=== PATIENT | female | born 1950 | race Caucasian/White ===

== ENCOUNTER 2017-07-29 09:58 | Outpatient (CLI) | payer OTHER ==
[~2017-07-29 09:58] MED LIST: AVALIDE 300-121 EACH; CIPRO500 MG PO; LEVSIN0.125 MG PO; NORVASC2.5 M1; PROTONIX40 MG PO; ZANTAC300 MG PO; ZOFRAN4 MG PO
== END 2017-07-29 10:22 | disposition home or self-care (01) ==
LOC: MRI 09:58
DX: M70.51 Other bursitis of knee, right knee (principal)
CPT/HCPCS: 73721

== ENCOUNTER 2017-07-29 10:01 | Outpatient (CLI) | payer OTHER | END 2017-07-29 10:24 | disposition home or self-care (01) | LOC: RAD 10:01 | DX: M70.51 Other bursitis of knee, right knee (principal) ==

== ENCOUNTER 2017-10-18 07:19 | Outpatient (CLI) | payer OTHER | END 2017-10-18 07:47 | disposition home or self-care (01) | LOC: LAB 07:19 | DX: D50.8 Other iron deficiency anemias (principal); R53.1 Weakness; E78.2 Mixed hyperlipidemia; E11.40 Type 2 diabetes mellitus with diabetic neuropathy, unspecified; N30.90 Cystitis, unspecified without hematuria; M81.0 Age-related osteoporosis without current pathological fracture; Z12.11 Encounter for screening for malignant neoplasm of colon; E04.2 Nontoxic multinodular goiter ==

== ENCOUNTER 2018-01-27 07:48 | Outpatient (CLI) | payer OTHER | END 2018-01-27 08:11 | disposition home or self-care (01) | LOC: LAB 07:48 | DX: E78.2 Mixed hyperlipidemia (principal); N30.00 Acute cystitis without hematuria; E78.4 Other hyperlipidemia; D51.3 Other dietary vitamin B12 deficiency anemia; N95.1 Menopausal and female climacteric states; Z12.11 Encounter for screening for malignant neoplasm of colon; N83.299 Other ovarian cyst, unspecified side ==

== ENCOUNTER 2018-05-22 08:16 | Outpatient (CLI) | payer OTHER | END 2018-05-22 08:26 | disposition home or self-care (01) | LOC: LAB 08:16 | DX: E78.2 Mixed hyperlipidemia (principal) ==

== ENCOUNTER 2018-07-16 08:24 | Outpatient (CLI) | payer OTHER | END 2018-07-16 08:47 | disposition home or self-care (01) | LOC: LAB 08:24 | DX: E78.00 Pure hypercholesterolemia, unspecified (principal) ==

== ENCOUNTER → 2022-10-18 | Emergency (ER) | payer OTHER ==
[~2022-10-18] VITALS: Ht 154.9 cm; Wt 54.9 kg
== END | disposition home or self-care (01) ==
LOC: ER 10:13
DX: S80.11XA Contusion of right lower leg, initial encounter (principal); S50.01XA Contusion of right elbow, initial encounter; W18.39XA Other fall on same level, initial encounter; Y93.89 Activity, other specified; Y92.512 Supermarket, store or market as the place of occurrence of the external cause; Y99.8 Other external cause status; I10 Essential (primary) hypertension

== ENCOUNTER → 2022-12-09 | Emergency (ER) | payer OTHER ==
[~2022-12-09] VITALS: Ht 154.9 cm; Wt 54.4 kg
[~2022-12-09] MED LIST changes: +ATORVASTATIN CA20 MG PO; +AVAPRO75 MG; +CARVEDILOL12.5 M1 PO
== END | disposition left against medical advice (07) ==
LOC: ER 11:15
DX: S09.8XXA Other specified injuries of head, initial encounter (principal); W18.39XA Other fall on same level, initial encounter; Y93.89 Activity, other specified; Y92.013 Bedroom of single-family (private) house as the place of occurrence of the external cause; R55 Syncope and collapse; U07.1 COVID-19

== ENCOUNTER 2024-04-05 13:34 | Emergency (ER) | payer OTHER ==
[~2024-04-05] VITALS: Ht 154.9 cm; Wt 54.4 kg
[2024-04-05] MEDS ORDERED: LEVALBUTEROL HCL 1.25 MG/3 ML SOLUTION IH ONE (17:15)
[2024-04-05] MEDS ORDERED: IPRATROPIUM BROMIDE 0.5 MG/2.5 ML AMPUL.NEB IH ONE (17:15)
[2024-04-05] MEDS ORDERED: GUAIFENESIN/DEXTROMETHORPHAN 10ML BLIST.PACK PO ONE (17:15)
[2024-04-05] MEDS ORDERED: CETIRIZINE HCL 5 MG/5 ML ML PO ONE (17:30)
[2024-04-05 18:07] LABS: HEMATOCRIT 41.3 % (36.0-45.00); HEMOGLOBIN 14.4 g/dL (12.0-15.00); MEAN CORPUSCULAR HEMOGLOBIN 31.1 pg (27.00-32.0); MEAN CORPUSCULAR HGB CONC 34.9 g/dl (32.0-36.0); PLATELET COUNT 222 K/uL (150-450); RED BLOOD COUNT 4.64 M/uL (4.00-6.00); RED CELL DISTRIBUTION WIDTH 14.1 % (11.5-14.5)
[2024-04-05] MEDS ORDERED: IPRATROPIU0.2 MG/1 M IH (19:16)
[2024-04-05] MEDS ORDERED: XOPENEX CO1.25 MG/0. IH (19:16)
[2024-04-05] MEDS ORDERED: TUSSIN DM LIQU118 ML PO (19:16)
[2024-04-05] MEDS ORDERED: ZITHROMAX TRI-500 MG PO (19:17)
== END 2024-04-05 20:30 | disposition home or self-care (01) ==
LOC: ER 13:35
PROVIDERS: Nurse Practitioner Family
DX: J06.9 Acute upper respiratory infection, unspecified (principal); J00 Acute nasopharyngitis [common cold]; Z20.822 Contact with and (suspected) exposure to COVID-19; I10 Essential (primary) hypertension

== ENCOUNTER 2024-05-07 08:22 | Outpatient (CLI) | payer OTHER ==
[~2024-05-07 08:22] MED LIST changes: +IPRATROPIU0.2 MG/1 M IH; +TUSSIN DM LIQU118 ML PO; +XOPENEX CO1.25 MG/0. IH; +ZITHROMAX TRI-500 MG PO
== END 2024-05-07 08:30 | disposition home or self-care (01) ==
LOC: SONOGRAMA 08:22
PROVIDERS: ATTEND Specialist
DX: K76.0 Fatty (change of) liver, not elsewhere classified (principal)

== ENCOUNTER 2024-12-14 12:10 | Inpatient (IN) | payer OTHER ==
[~2024-12-14] VITALS: Ht 152.4 cm; Wt 53.5 kg
[2024-12-14 15:04] LABS: BASO % 1.0 % (0.1-1.2); EOS # 0.55 (0.04-0.54); EOS % 5.9 % (0.7-7.0); LYMPH # 1.81 (1.18-3.74); LYMPH % 19.5 % (19.3-53.1); MEAN PLATELET VOLUME 9.40 fl (9.4-12.4); MONO # 1.02 (0.24-0.82); MONO % 11.0 % (4.7-12.5); NEUT # 5.76 (1.56-6.13); NEUT % 62.2 % (34.0-71.1); RED CELL DISTRIBUTION WIDTH 13.3 % (11.6-14.4)
[2024-12-14 17:07] LABS: ABG PH 7.462 (7.35-7.45); ABG PO2 69.5 mmHg (80-100); BICARBONATE 19.3 mmol/l (23-25); o2 21 %
[2024-12-14] MEDS ORDERED: IPRATROPIUM BROMIDE 0.5 MG/2.5 ML AMPUL.NEB IH SCH (19:56)
[2024-12-14] MEDS ORDERED: ACETAMINOPHEN 500 MG GEL..CAP PO PRN (20:00)
[2024-12-14] MEDS ORDERED: CEFTRIAXONE SODIUM 2,000 MG in 0.9 % SODIUM CHLORIDE 100 ML IV SCH (20:05)
[2024-12-14] MEDS ORDERED: AZITHROMYCIN 500 MG in DEXTROSE 5 % IN WATER 250 ML IV SCH (20:05)
[2024-12-14 20:11] LABS: ALT/SGPT 60.0 U/L (12-78); AST/SGOT 31.0 U/L (15-37); BILIRUBIN TOTAL 0.54 mg/dL (0.3-1.2); BUN CREA RATIO 25.0 (7.0-25.0); CREATININE SERUM 0.71 mg/dL (0.55-1.02); GFR 80.47; GLOBULINA 4.4 G/DL (2.4-3.5); GLUCOSE FASTING 144.0 mg/dL (65-100); OSMOLALITY SERUM 282.0 MOSM/KG (275-295)
[2024-12-14 20:57] LABS: COVID-19 AG NEGATIVE (NEGATIVE)
[2024-12-14] MEDS ORDERED: AZITHROMYCIN 500 MG VIAL IV ONE (21:56)
[2024-12-14] MEDS ORDERED: CEFTRIAXONE SODIUM 2,000 MG VIAL ONE (21:56)
[2024-12-14] MEDS ORDERED: OSELTAMIVIR PHOSPHATE 75 MG CAPSULE PO SCH (22:02)
[2024-12-14] MEDS ORDERED: OSELTAMIVIR PHOSPHATE 75 MG CAPSULE PO ONE (22:22)
[2024-12-14 22:26] VITALS: BP 157/75
[2024-12-14 22:31] LABS: URINE APPEARANCE Clear; URINE BILIRRUBIN Negative (NEGATIVE); URINE BLOOD Negative; URINE COLOR Yellow; URINE GLUCOSE Negative (NEGATIVE); URINE KETONE Negative (NEGATIVE); URINE LEUKOCYTE Negative; URINE NITRATE Negative; URINE PROTEIN Negative (NEGATIVE); URINE UROBILINOGEN 0.2 E.U./dl
[2024-12-14 22:35] LABS: URINE BACTERIA 37.9 uL (0.0-1933); URINE EPITHELIAL CELLS 2.3 uL (0.0-38.8); URINE RBC 19.5 uL (0.0-20.8); URINE WBC 10.1 uL (0.0-23.2)
[2024-12-14 22:37] LABS: URINE CAST 0.58 uL (0.0-1.40)
[2024-12-14 23:14] LABS: URINE YEAST FEW /hpf
[2024-12-14 23:15] VITALS: BP 112/72; O2SAT 96
[2024-12-15] VITALS (7 sets, daily range): BP systolic 124–153; BP diastolic 77–86; O2SAT 90–97
[2024-12-15] MEDS ORDERED: IPRATROPIUM BROMIDE 0.5 MG/2.5 ML AMPUL.NEB IH ONE (00:20)
[2024-12-15 07:53] LABS: INR 1.05
[2024-12-15] MEDS ORDERED: FAMOTIDINE/PF 20 MG in 0.9 % SODIUM CHLORIDE 8 ML IV PUSH SCH (09:00)
[2024-12-15] MEDS ORDERED: IRBESARTAN 150 MG TABLET PO SCH (09:00)
[2024-12-15] MEDS ORDERED: ATORVASTATIN CALCIUM 20 MG TABLET PO SCH (09:00)
[2024-12-15] MEDS ORDERED: ENOXAPARIN SODIUM 40 MG/0.4 ML SYRINGE SUBCUTANEO SCH (09:00)
[2024-12-15] MEDS ORDERED: AZITHROMYCIN 500 MG VIAL IV ONE (16:29)
[2024-12-15] MEDS ORDERED: AZITHROMYCIN 500 MG VIAL IV SCH (17:00)
[2024-12-15] MEDS ORDERED: ENALAPRILAT DIHYDRATE 1.25 MG/ML VIAL IV PRN (17:15)
[2024-12-15 21:32] LABS: MONONUCLEAR 84.0 %; POLYMORPHONUCLEAR 16.0 %
[2024-12-15 21:51] LABS: GLU PLEURAL FLUID 115.0 mg/dl; LDH PLEURAL FLUID 226.0 U/L; TP PLEURAL FLUID 5.4 g/dl
[2024-12-16] VITALS (9 sets, daily range): BP systolic 124–147; BP diastolic 74–79; O2SAT 98–100
[2024-12-16 06:57] LABS: BASO % 0.9 % (0.1-1.2); EOS # 0.47 (0.04-0.54); EOS % 4.7 % (0.7-7.0); LYMPH # 1.84 (1.18-3.74); LYMPH % 18.5 % (19.3-53.1); MEAN PLATELET VOLUME 10.00 fl (9.4-12.4); MONO # 1.11 (0.24-0.82); MONO % 11.2 % (4.7-12.5); NEUT # 6.37 (1.56-6.13); NEUT % 64.2 % (34.0-71.1); RED CELL DISTRIBUTION WIDTH 13.2 % (11.6-14.4)
[2024-12-16 07:36] LABS: ALT/SGPT 42.0 U/L (12-78); AST/SGOT 19.0 U/L (15-37); BILIRUBIN TOTAL 0.69 mg/dL (0.3-1.2); BUN CREA RATIO 32.0 (7.0-25.0); CREATININE SERUM 0.59 mg/dL (0.55-1.02); GFR 99.64; GLOBULINA 3.5 G/DL (2.4-3.5); GLUCOSE FASTING 98.0 mg/dL (65-100); LDH 140.0 U/L (84-246); OSMOLALITY SERUM 276.0 MOSM/KG (275-295)
[2024-12-16 08:46] LABS: MYCOPLASMA PNEUMONIAE IGM NON REACTIVE (NO REACTIVE)
[2024-12-16] MEDS ORDERED: AMLODIPINE BESYLATE 5 MG TABLET PO SCH (09:00)
[2024-12-16] MEDS ORDERED: AZITHROMYCIN 500 MG VIAL IV ONE (16:21)
[2024-12-16] MEDS ORDERED: fentaNYL CITRATE 50 MCG/ML AMPUL IV PUSH ONE (19:15)
[2024-12-16] MEDS ORDERED: MIDAZOLAM HCL 2 MG/2 ML VIAL IV PUSH ONE (19:15)
[2024-12-17] VITALS (9 sets, daily range): BP systolic 118–133; BP diastolic 71–79; O2SAT 97–100
[2024-12-17] MEDS ORDERED: MORPHINE SULFATE 2 MG/ML CARTRIDGE IV PRN (14:15)
[2024-12-17] MEDS ORDERED: TRAMADOL HCL 50 MG TABLET PO PRN (14:45)
[2024-12-18] VITALS (9 sets, daily range): BP systolic 118–142; BP diastolic 74–84; O2SAT 90–100
[2024-12-19] VITALS (9 sets, daily range): BP systolic 120–121; BP diastolic 71–78; O2SAT 95–99
[2024-12-19 08:10] LABS: BASO % 1.0 % (0.1-1.2); EOS # 0.59 (0.04-0.54); EOS % 7.2 % (0.7-7.0); LYMPH # 1.62 (1.18-3.74); LYMPH % 19.8 % (19.3-53.1); MEAN PLATELET VOLUME 9.60 fl (9.4-12.4); MONO # 0.99 (0.24-0.82); NEUT # 4.85 (1.56-6.13); NEUT % 59.3 % (34.0-71.1); RED CELL DISTRIBUTION WIDTH 12.7 % (11.6-14.4)
[2024-12-19 08:16] LABS: MONO % 12.1 % (4.7-12.5)
[2024-12-19 08:51] LABS: ALT/SGPT 143.0 U/L (12-78); AST/SGOT 133.0 U/L (15-37); BILIRUBIN TOTAL 0.5 mg/dL (0.3-1.2); BUN CREA RATIO 30.0 (7.0-25.0); CREATININE SERUM 0.74 mg/dL (0.55-1.02); GFR 76.72; GLOBULINA 3.9 G/DL (2.4-3.5); GLUCOSE FASTING 89.0 mg/dL (65-100); LDH 194.0 U/L (84-246); OSMOLALITY SERUM 271.0 MOSM/KG (275-295)
[2024-12-20] VITALS (9 sets, daily range): BP systolic 118–159; BP diastolic 75–78; O2SAT 95–98
[2024-12-21] VITALS (10 sets, daily range): BP systolic 114–131; BP diastolic 68–81; O2SAT 91–99
[2024-12-21] MEDS ORDERED: TRAMADOL HCL 50 MG TABLET PO PRN (11:00)
[2024-12-22 00:50] VITALS: BP 118/74; O2SAT 97
[2024-12-22 05:55] VITALS: O2SAT 96
[2024-12-22 08:44] VITALS: O2SAT 96
[2024-12-22] MEDS ORDERED: BENZONATATE 200 MG CAPSULE PO SCH (09:00)
[2024-12-22 10:17] VITALS: BP 115/72; O2SAT 94
== END 2024-12-22 13:24 | disposition home or self-care (01) | DRG 194 ==
LOC: ER 12:10 → MEDI 20:57 → SURH 20:57 → SEC-K 21:31 → SURH 12-15 00:47 → MEDJ 12-15 20:55
PROVIDERS: General Practice; Internal Medicine Infectious Disease; Radiology Vascular & Interventional Radiology; ADMIT Specialist; ATTEND Specialist
PROC: 8E0ZXY6 Isolation (ICD-10-PCS; principal; 2024-12-14)
PROC: BB24ZZZ Computerized Tomography (CT Scan) of Bilateral Lungs (ICD-10-PCS; 2024-12-14)
PROC: 3E0F7GC Introduction of Other Therapeutic Substance into Respiratory Tract, Via Natural or Artificial Opening (ICD-10-PCS; 2024-12-15)
PROC: 0W9B30Z Drainage of Left Pleural Cavity with Drainage Device, Percutaneous Approach (ICD-10-PCS; 2024-12-15)
PROC: 0BBJ3ZX Excision of Left Lower Lung Lobe, Percutaneous Approach, Diagnostic (ICD-10-PCS; 2024-12-16)
DX: J10.08 Influenza due to other identified influenza virus with other specified pneumonia (principal); C34.32 Malignant neoplasm of lower lobe, left bronchus or lung; J91.8 Pleural effusion in other conditions classified elsewhere; F41.1 Generalized anxiety disorder; I10 Essential (primary) hypertension; E78.5 Hyperlipidemia, unspecified

== ENCOUNTER 2025-01-07 13:58 | Outpatient (CLI) | payer OTHER | END 2025-01-07 14:06 | disposition home or self-care (01) | LOC: RAD 13:58 | PROVIDERS: ATTEND Internal Medicine Hematology & Oncology | DX: R06.02 Shortness of breath (principal); J91.8 Pleural effusion in other conditions classified elsewhere ==

== ENCOUNTER 2025-01-09 15:38 | Inpatient (IN) | payer OTHER ==
[~2025-01-09] VITALS: Ht 152.4 cm; Wt 53.5 kg
--- NOTE | 2025-01-09 17:25 | NUR ---
SE RECIBE PTE ALERTA ORIENTADA X3 Y AMBULANDO. PTE REFIERE FATIGA Y DOLOR EN ESPALDA BAJA HACE DOS DIEGO. SE REALIZA EKG Y SE MUESTRA A DR. RICH. SE MIDEN S/V Y SE UBICA.
--- NOTE | 2025-01-09 18:27 | NUR ---
PTE ALERTA Y ORIENTADA X3 ES EVALUADA POR LA DRA. RICH. SE ORIENTA SOBRE TRATAMIENTO, VERBALIZA ENTENDER. SE COLECTAN MUESTRAS DE LAB LEOPOLDO ORDEN MEDICA BAJO MEDIDAS ASEPTICAS. SE NOTIFICA CT.
[2025-01-09 18:28] LABS: BASO % 0.9 % (0.1-1.2); EOS # 1.08 (0.04-0.54); EOS % 8.0 % (0.7-7.0); LYMPH # 1.44 (1.18-3.74); LYMPH % 10.7 % (19.3-53.1); MEAN PLATELET VOLUME 9.00 fl (9.4-12.4); MONO # 1.11 (0.24-0.82); MONO % 8.2 % (4.7-12.5); NEUT # 9.62 (1.56-6.13); NEUT % 71.5 % (34.0-71.1); RED CELL DISTRIBUTION WIDTH 13.4 % (11.6-14.4)
[2025-01-09 18:53] LABS: ALT/SGPT 72.0 U/L (12-78); AST/SGOT 56.0 U/L (15-37); BILIRUBIN TOTAL 0.48 mg/dL (0.3-1.2); BUN CREA RATIO 21.0 (7.0-25.0); CREATININE SERUM 0.82 mg/dL (0.55-1.02); GFR 68.15; GLOBULINA 4.9 G/DL (2.4-3.5); GLUCOSE FASTING 150.0 mg/dL (65-100); OSMOLALITY SERUM 271.0 MOSM/KG (275-295)
[2025-01-09 18:59] LABS: COVID-19 AG NEGATIVE (NEGATIVE)
[2025-01-09 19:00] LABS: INR 1.05
[2025-01-09 19:20] LABS: ABG PH 7.428 (7.35-7.45); ABG PO2 81.4 mmHg (80-100); BICARBONATE 20.1 mmol/l (23-25); o2 21 %
[2025-01-09] MEDS ORDERED: IPRATROPIUM BROMIDE 0.5 MG/2.5 ML AMPUL.NEB IH SCH ×2 (21:40→21:44)
[2025-01-09] MEDS ORDERED: BENZONATATE 100 MG CAPSULE PO SCH (21:43)
[2025-01-09] MEDS ORDERED: 0.9 % SODIUM CHLORIDE 1,000 ML IV SCH (21:45)
[2025-01-09] MEDS ORDERED: ACETAMINOPHEN 500 MG GEL..CAP PO PRN (21:45)
[2025-01-10 01:23] VITALS: BP 171/90; O2SAT 100
[2025-01-10 01:50] LABS: URINE APPEARANCE Clear; URINE BILIRRUBIN Negative (NEGATIVE); URINE BLOOD Negative; URINE COLOR Yellow; URINE GLUCOSE Negative (NEGATIVE); URINE KETONE Trace (NEGATIVE); URINE LEUKOCYTE Small; URINE NITRATE Negative; URINE PROTEIN 30 (NEGATIVE); URINE UROBILINOGEN 1.0 E.U./dl
[2025-01-10 01:54] LABS: URINE BACTERIA 421.2 uL (0.0-1933); URINE EPITHELIAL CELLS 15.6 uL (0.0-38.8); URINE RBC 20.2 uL (0.0-20.8); URINE WBC 26.1 uL (0.0-23.2)
[2025-01-10 02:17] LABS: URINE CAST 0.58 uL (0.0-1.40)
[2025-01-10 08:00] VITALS: BP 155/80; O2SAT 97
[2025-01-10] MEDS ORDERED: IRBESARTAN 300 MG TABLET PO SCH (09:00)
[2025-01-10] MEDS ORDERED: ENOXAPARIN SODIUM 40 MG/0.4 ML SYRINGE SUBCUTANEO SCH (09:00)
[2025-01-10] MEDS ORDERED: ATORVASTATIN CALCIUM 20 MG TABLET PO SCH (09:00)
[2025-01-10] MEDS ORDERED: BENZONATATE 200 MG CAPSULE PO SCH (09:00)
[2025-01-10] MEDS ORDERED: CARVEDILOL 6.25 MG TABLET PO SCH (09:00)
[2025-01-10 17:00] VITALS: BP 150/82; O2SAT 97
[2025-01-10 21:47] LABS: MONONUCLEAR 90.0 %; POLYMORPHONUCLEAR 10.0 %
[2025-01-10 22:01] LABS: GLU PLEURAL FLUID 111.0 mg/dl; LDH PLEURAL FLUID 68.0 U/L; TP PLEURAL FLUID 5.3 g/dl
[2025-01-11 00:47] VITALS: BP 130/85; O2SAT 95
[2025-01-11 08:00] VITALS: BP 154/86; O2SAT 97
[2025-01-11] MEDS ORDERED: CEFTRIAXONE SODIUM 1,000 MG VIAL IV STA (11:36)
[2025-01-11] MEDS ORDERED: TRAMADOL HCL 50 MG TABLET PO PRN (13:15)
[2025-01-11 15:30] VITALS: BP 145/75; O2SAT 96
[2025-01-12 08:00] VITALS: BP 152/81; O2SAT 97
[2025-01-12] MEDS ORDERED: CEFTRIAXONE SODIUM 1,000 MG VIAL IV SCH (09:00)
[2025-01-12] MEDS ORDERED: FAMOTIDINE/PF 20 MG/2 ML VIAL IV NR (12:05)
[2025-01-12 16:33] VITALS: BP 134/78; O2SAT 97
== END 2025-01-12 17:53 | DRG 181 ==
LOC: ER 15:45 → SURG 21:45
PROVIDERS: General Practice; Radiology Vascular & Interventional Radiology; ADMIT Specialist; ATTEND Specialist
PROC: BB24ZZZ Computerized Tomography (CT Scan) of Bilateral Lungs (ICD-10-PCS; 2025-01-09)
PROC: 0W9B3ZZ Drainage of Left Pleural Cavity, Percutaneous Approach (ICD-10-PCS; principal; 2025-01-10)
DX: C34.92 Malignant neoplasm of unspecified part of left bronchus or lung (principal); J90 Pleural effusion, not elsewhere classified; E78.5 Hyperlipidemia, unspecified; I10 Essential (primary) hypertension

== ENCOUNTER 2025-01-19 13:59 | Outpatient (CLI) | payer OTHER ==
[2025-01-19 15:20] LABS: CREATININE SERUM 0.68 mg/dL (0.55-1.02)
== END 2025-01-19 15:51 | disposition home or self-care (01) ==
LOC: LAB 13:59
PROVIDERS: ATTEND Radiology Diagnostic Radiology
DX: C80.1 Malignant (primary) neoplasm, unspecified (principal)

== ENCOUNTER 2025-01-20 08:17 | Outpatient (CLI) | payer OTHER ==
[2025-01-21] MEDS ORDERED: CONZIP100 MG (16:06)
[2025-01-21] MEDS ORDERED: AVAPRO150 MG (16:06)
[2025-01-21] MEDS ORDERED: FOLIC ACID1 MG (16:07)
[2025-01-21] MEDS ORDERED: OMEPRAZOLE MAGN20 MG (16:07)
== END 2025-01-20 08:25 | disposition home or self-care (01) ==
LOC: MRI 08:17
PROVIDERS: ATTEND Internal Medicine Hematology & Oncology
DX: C80.1 Malignant (primary) neoplasm, unspecified (principal); J91.0 Malignant pleural effusion
CPT/HCPCS: 70552; Q9965

== ENCOUNTER 2025-01-21 15:38 | Inpatient (IN) | payer OTHER ==
[~2025-01-21] VITALS: Wt 50.3 kg
[2025-01-21] MEDS ORDERED: AVAPRO150 MG (16:06)
[2025-01-21] MEDS ORDERED: CONZIP100 MG (16:06)
[2025-01-21] MEDS ORDERED: OMEPRAZOLE MAGN20 MG (16:07)
[2025-01-21] MEDS ORDERED: FOLIC ACID1 MG (16:07)
--- NOTE | 2025-01-21 16:09 | NUR ---
PTE ALERTA Y ORIRNETEDA X3 REFIERE QUE FUE REFIERDA POR LA DRA. OSIEL LUKE POR SUSPECTED PLEURAL EFFUSION Y SOB. SE MIDEN S/V Y SE UBICA.
[2025-01-21] MEDS ORDERED: 0.9 % SODIUM CHLORIDE 1,000 ML IV SCH (17:00)
[2025-01-21 17:43] LABS: BASO % 1.4 % (0.1-1.2); EOS # 0.45 (0.04-0.54); EOS % 12.3 % (0.7-7.0); LYMPH # 0.74 (1.18-3.74); LYMPH % 20.2 % (19.3-53.1); MEAN PLATELET VOLUME 8.80 fl (9.4-12.4); MONO # 0.88 (0.24-0.82); NEUT # 1.51 (1.56-6.13); NEUT % 41.3 % (34.0-71.1); RED CELL DISTRIBUTION WIDTH 13.2 % (11.6-14.4)
[2025-01-21 17:44] LABS: MONO % 24.0 % (4.7-12.5)
--- NOTE | 2025-01-21 17:46 | NUR ---
SE ORIENTA A PACIENTE SOBRE TX MEDICO, REFIERE ENTENDER. SE COLECTAN MUESTRAS DE LABORATORIO Y SE CANALIZ A PACIENTE BAJO MEDIDAS ASEPTICAS. SE COLOCA IVF'S LEOPOLDO ORDEN MEDICA. SE NOTIFICAN ABGS. PENDIENTE REALIZAR CT.
[2025-01-21 18:07] LABS: INR 1.01
[2025-01-21 18:17] LABS: ALT/SGPT 91.0 U/L (12-78); AST/SGOT 31.0 U/L (15-37); BILIRUBIN TOTAL 0.8 mg/dL (0.3-1.2); BUN CREA RATIO 31.0 (7.0-25.0); CREATININE SERUM 0.59 mg/dL (0.55-1.02); GFR 99.64; GLOBULINA 4.5 G/DL (2.4-3.5); GLUCOSE FASTING 106.0 mg/dL (65-100); LDH 138.0 U/L (84-246); OSMOLALITY SERUM 271.0 MOSM/KG (275-295)
[2025-01-21 18:18] LABS: PHOSPHOKINASE CREATININE 17.0 U/L (26-192)
[2025-01-21 20:33] LABS: ABG PH 7.500 (7.35-7.45); ABG PO2 90.1 mmHg (80-100); BICARBONATE 20.7 mmol/l (23-25); o2 21 %
[2025-01-21] MEDS ORDERED: AMLODIPINE BESYLATE 2.5 MG TABLET PO SCH (22:50)
[2025-01-21] MEDS ORDERED: CEFTRIAXONE SODIUM 1,000 MG VIAL IV SCH (22:51)
[2025-01-21] MEDS ORDERED: ENOXAPARIN SODIUM 40 MG/0.4 ML SYRINGE SUBCUTANEO SCH (22:51)
[2025-01-21] MEDS ORDERED: FAMOTIDINE/PF 20 MG in 0.9 % SODIUM CHLORIDE 8 ML IV PUSH SCH (22:52)
[2025-01-21] MEDS ORDERED: DEXTROSE 5 % AND 0.9 % NACL 1,000 ML IV SCH (23:00)
[2025-01-21] MEDS ORDERED: ACETAMINOPHEN 325 MG TABLET PO PRN (23:00)
[2025-01-21] MEDS ORDERED: TRAMADOL HCL 50 MG TABLET PO PRN (23:00)
[2025-01-22] MEDS ORDERED: hydrALAZINE HCL 20 MG VIAL IV SCH
[2025-01-22 03:46] LABS: AST/SGOT 32.0 U/L (15-37); BILIRUBIN TOTAL 1.25 mg/dL (0.3-1.2); BILIRUBIN,CONJUGATED 0.22 mg/dL (0.0-0.2)
[2025-01-22 03:48] LABS: ALT/SGPT 80.0 U/L (12-78)
[2025-01-22 05:02] VITALS: BP 167/80; O2SAT 96
[2025-01-22 05:05] LABS: URINE APPEARANCE Clear; URINE BILIRRUBIN Negative (NEGATIVE); URINE BLOOD Negative; URINE COLOR Yellow; URINE GLUCOSE Negative (NEGATIVE); URINE KETONE Negative (NEGATIVE); URINE LEUKOCYTE Negative; URINE NITRATE Negative; URINE PROTEIN Negative (NEGATIVE); URINE UROBILINOGEN 0.2 E.U./dl
[2025-01-22 05:09] LABS: URINE BACTERIA 9.5 uL (0.0-1933); URINE RBC 16.2 uL (0.0-20.8)
[2025-01-22 05:30] VITALS: BP 140/70; O2SAT 99
[2025-01-22 05:48] LABS: URINE CAST 0.14 uL (0.0-1.40); URINE EPITHELIAL CELLS 1.2 uL (0.0-38.8); URINE WBC 0.4 uL (0.0-23.2)
[2025-01-22 06:37] VITALS: BP 110/60; O2SAT 98
[2025-01-22 08:33] VITALS: BP 155/72; O2SAT 98
[2025-01-22 17:57] VITALS: BP 160/81; O2SAT 96
[2025-01-22] MEDS ORDERED: CARVEDILOL 12.5 MG TABLET PO SCH (21:00)
[2025-01-23 02:03] VITALS: BP 118/68
[2025-01-23] MEDS ORDERED: PANTOPRAZOLE SODIUM 40 MG TABLET.DR PO SCH (07:30)
[2025-01-23] MEDS ORDERED: IRBESARTAN 150 MG TABLET PO SCH (09:00)
[2025-01-23] MEDS ORDERED: FOLIC ACID 1 MG TABLET PO SCH (09:00)
[2025-01-23 10:28] VITALS: BP 139/71
[2025-01-23 17:53] VITALS: BP 134/78
[2025-01-24 01:56] VITALS: BP 113/58
[2025-01-24 09:13] VITALS: BP 149/78; O2SAT 100
[2025-01-24 17:28] VITALS: BP 119/75
[2025-01-25 01:07] VITALS: BP 124/74
[2025-01-25 08:31] VITALS: BP 139/70
[2025-01-25 16:20] VITALS: BP 151/96
[2025-01-25] MEDS ORDERED: BUPIVACAINE HCL/MPF 0.5% 30ML VIAL ONE (18:31)
[2025-01-25] MEDS ORDERED: IOVERSOL 320 MG/ML - 50 ML VIAL IV ONE (18:31)
[2025-01-25] MEDS ORDERED: BUPIVACAINE HCL 30 ML VIAL IJ ONE (19:45)
[2025-01-25] MEDS ORDERED: TRAMADOL HCL 50 MG TABLET PO PRN (23:15)
[2025-01-26 02:02] VITALS: BP 126/74
[2025-01-26 08:55] LABS: BASO % 0.8 % (0.1-1.2); EOS # 0.27 (0.04-0.54); EOS % 5.5 % (0.7-7.0); LYMPH # 1.02 (1.18-3.74); LYMPH % 20.7 % (19.3-53.1); MEAN PLATELET VOLUME 9.90 fl (9.4-12.4); MONO # 0.99 (0.24-0.82); NEUT # 2.03 (1.56-6.13); NEUT % 41.3 % (34.0-71.1); RED CELL DISTRIBUTION WIDTH 13.4 % (11.6-14.4)
[2025-01-26 09:03] VITALS: BP 137/79; O2SAT 95
[2025-01-26 09:34] LABS: ALT/SGPT 35.0 U/L (12-78); AST/SGOT 14.0 U/L (15-37); BILIRUBIN TOTAL 0.48 mg/dL (0.3-1.2); BUN CREA RATIO 32.0 (7.0-25.0); CREATININE SERUM 0.41 mg/dL (0.55-1.02); GFR 151.65; GLOBULINA 3.6 G/DL (2.4-3.5); GLUCOSE FASTING 101.0 mg/dL (65-100); OSMOLALITY SERUM 270.0 MOSM/KG (275-295)
[2025-01-26 09:42] LABS: MONO % 20.1 % (4.7-12.5)
[2025-01-26 09:43] LABS: BAND MAN 2.0 %; EOSINOPHIL MAN 4.0 %; LYMPHOCYTE MAN 35.0 %; MONOCYTE MAN 21.0 %; NEUTROPHILS MAN 37.0 %
[2025-01-26 17:59] VITALS: BP 154/77
[2025-01-27 03:15] VITALS: BP 113/70; O2SAT 95
[2025-01-27 10:07] VITALS: BP 131/77; O2SAT 94
[2025-01-27 18:07] VITALS: BP 143/80
== END 2025-01-27 19:58 | disposition home or self-care (01) | DRG 181 ==
LOC: ER 15:38 → SEC-K 23:43 → MEDJ 23:43
PROVIDERS: General Practice; Radiology Vascular & Interventional Radiology; ADMIT Specialist; ATTEND Specialist
PROC: BB24YZZ Computerized Tomography (CT Scan) of Bilateral Lungs using Other Contrast (ICD-10-PCS; 2025-01-21)
PROC: BT4JZZZ Ultrasonography of Kidneys and Bladder (ICD-10-PCS; 2025-01-21)
PROC: 8E0ZXY6 Isolation (ICD-10-PCS; 2025-01-24)
PROC: 0B9P30Z Drainage of Left Pleura with Drainage Device, Percutaneous Approach (ICD-10-PCS; principal; 2025-01-25 17:00)
DX: C78.02 Secondary malignant neoplasm of left lung (principal); J91.0 Malignant pleural effusion; E78.5 Hyperlipidemia, unspecified; I10 Essential (primary) hypertension
CPT/HCPCS: 70552

== ENCOUNTER → 2025-02-10 | Emergency (ER) | payer OTHER ==
[~2025-02-10] VITALS: Ht 152.4 cm; Wt 49.9 kg
[~2025-02-10] MED LIST changes: +AVAPRO150 MG; +CONZIP100 MG; +FOLIC ACID1 MG; +OMEPRAZOLE MAGN20 MG
[2025-02-10 14:27] VITALS: BP 156/81; O2SAT 95
[2025-02-10 15:44] LABS: ABG PH 7.460 (7.35-7.45); ABG PO2 81.0 mmHg (80-100); BICARBONATE 20.8 mmol/l (23-25)
[2025-02-10 15:45] LABS: o2 21 %
== END | disposition left against medical advice (07) ==
LOC: ER 14:15
PROVIDERS: Emergency Medicine
DX: C34.90 Malignant neoplasm of unspecified part of unspecified bronchus or lung (principal); I10 Essential (primary) hypertension

== ENCOUNTER 2025-02-11 16:23 | Emergency (ER) | payer OTHER ==
[~2025-02-11] VITALS: Ht 152.4 cm; Wt 49.0 kg
== END 2025-02-11 18:37 ==
LOC: ER 16:23
DX: I10 Essential (primary) hypertension (principal); J91.0 Malignant pleural effusion

== ENCOUNTER 2025-02-22 12:59 | Outpatient (CLI) | payer OTHER | END 2025-02-22 13:07 | disposition home or self-care (01) | LOC: RAD 12:59 | PROVIDERS: ATTEND Internal Medicine Hematology & Oncology | DX: C80.1 Malignant (primary) neoplasm, unspecified (principal); J91.0 Malignant pleural effusion ==

== ENCOUNTER 2025-04-11 07:31 | Outpatient (CLI) | payer OTHER | END 2025-04-11 07:48 | disposition home or self-care (01) | LOC: TOM 07:31 | PROVIDERS: ATTEND Internal Medicine Hematology & Oncology | DX: C80.1 Malignant (primary) neoplasm, unspecified (principal); J91.0 Malignant pleural effusion | CPT/HCPCS: 71260; Q9965 ==

== ENCOUNTER 2025-04-12 15:45 | Inpatient (IN) | payer OTHER ==
[~2025-04-12] VITALS: Ht 149.9 cm; Wt 51.7 kg
[2025-04-12] MEDS ORDERED: KETOROLAC TROMETHAMINE 30 MG VIAL IV ONE (18:30)
[2025-04-12] MEDS ORDERED: DEXAMETHASONE SODIUM PHOSPHATE 4 MG/ML VIAL IV ONE (18:30)
[2025-04-12] MEDS ORDERED: CEFTRIAXONE SODIUM 2,000 MG VIAL IV ONE (18:30)
[2025-04-12] MEDS ORDERED: CEFTRIAXONE SODIUM 2,000 MG VIAL ONE (18:41)
[2025-04-12] MEDS ORDERED: DEXAMETHASONE SODIUM PHOSPHATE 4 MG/ML VIAL ONE (18:41)
[2025-04-12] MEDS ORDERED: KETOROLAC TROMETHAMINE 30 MG VIAL ONE (18:41)
[2025-04-12 19:12] LABS: BASO % 0.7 % (0.1-1.2); EOS # 0.08 (0.04-0.54); EOS % 0.6 % (0.7-7.0); LYMPH # 1.57 (1.18-3.74); LYMPH % 11.7 % (19.3-53.1); MEAN PLATELET VOLUME 10.00 fl (9.4-12.4); MONO # 0.90 (0.24-0.82); MONO % 6.7 % (4.7-12.5); NEUT # 10.27 (1.56-6.13); NEUT % 76.2 % (34.0-71.1)
[2025-04-12 19:14] LABS: ERYTHROCYTE SEDIMENTATION RATE 87 mm/hr (0-30); RED CELL DISTRIBUTION WIDTH 17.8 % (11.6-14.4)
[2025-04-12 19:32] LABS: INR 1.01
[2025-04-12 19:40] LABS: ALT/SGPT 20.0 U/L (12-78); AST/SGOT 16.0 U/L (15-37); BILIRUBIN TOTAL 0.36 mg/dL (0.3-1.2); BUN CREA RATIO 45.0 (7.0-25.0); CREATININE SERUM 0.66 mg/dL (0.55-1.02); GFR 87.54; GLOBULINA 4.9 G/DL (2.4-3.5); GLUCOSE FASTING 95.0 mg/dL (65-100); OSMOLALITY SERUM 280.0 MOSM/KG (275-295)
[2025-04-12] MEDS ORDERED: 0.9 % SODIUM CHLORIDE 1,000 ML IV SCH (21:30)
[2025-04-12] MEDS ORDERED: ACETAMINOPHEN 325 MG TABLET PO PRN (21:30)
[2025-04-12] MEDS ORDERED: KETOROLAC TROMETHAMINE 30 MG VIAL IV PRN (21:30)
[2025-04-13] MEDS ORDERED: PIPERACILLIN/TAZOBACTAM SODIUM 3.375 GM in 0.9 % SODIUM CHLORIDE 100 ML IV SCH
[2025-04-13 02:39] VITALS: BP 119/67; O2SAT 98
[2025-04-13 08:00] VITALS: BP 143/81; O2SAT 98
[2025-04-13] MEDS ORDERED: AMLODIPINE BESYLATE 2.5 MG TABLET PO SCH (09:00)
[2025-04-13] MEDS ORDERED: FAMOTIDINE/PF 20 MG/2 ML VIAL IV SCH (09:00)
[2025-04-13] MEDS ORDERED: CARVEDILOL 12.5 MG TABLET PO SCH (09:00)
[2025-04-13] MEDS ORDERED: IRBESARTAN 150 MG TABLET PO SCH (09:00)
[2025-04-13] MEDS ORDERED: PIPERACILLIN/TAZOBACTAM SODIUM 3.375 GM VIAL IV ONE (11:36)
[2025-04-13] MEDS ORDERED: fentaNYL CITRATE 50 MCG/ML AMPUL IV PUSH ONE (17:30)
[2025-04-13] MEDS ORDERED: MIDAZOLAM HCL 2 MG/2 ML VIAL IV PUSH ONE (17:30)
[2025-04-13 18:37] VITALS: BP 147/87
[2025-04-14 02:28] VITALS: BP 132/72; O2SAT 96
[2025-04-14 09:04] VITALS: BP 144/82; O2SAT 98
[2025-04-14 19:30] VITALS: BP 130/80; O2SAT 96
[2025-04-15 00:54] VITALS: BP 123/74; O2SAT 96
[2025-04-15 06:16] LABS: BASO % 1.2 % (0.1-1.2); EOS # 0.07 (0.04-0.54); EOS % 0.9 % (0.7-7.0); LYMPH # 1.79 (1.18-3.74); LYMPH % 23.5 % (19.3-53.1); MEAN PLATELET VOLUME 9.90 fl (9.4-12.4); MONO # 0.81 (0.24-0.82); MONO % 10.6 % (4.7-12.5); NEUT # 4.72 (1.56-6.13); NEUT % 62.0 % (34.0-71.1); RED CELL DISTRIBUTION WIDTH 17.4 % (11.6-14.4)
[2025-04-15 06:39] LABS: BUN CREA RATIO 19.0 (7.0-25.0); CREATININE SERUM 0.72 mg/dL (0.55-1.02); GFR 79.18; GLUCOSE FASTING 85.0 mg/dL (65-100); OSMOLALITY SERUM 277.0 MOSM/KG (275-295)
[2025-04-15 09:15] VITALS: BP 145/82; O2SAT 98
[2025-04-15 18:25] VITALS: BP 106/72; O2SAT 99
[2025-04-16 01:49] VITALS: BP 127/73; O2SAT 97
[2025-04-16 09:09] VITALS: BP 130/82; O2SAT 98
[2025-04-16] MEDS ORDERED: NORVASC2.5 M1 PO (11:03)
[2025-04-16] MEDS ORDERED: CARVEDILOL12.5 MG PO (11:03)
[2025-04-16] MEDS ORDERED: ATORVASTATIN CA20 MG PO (11:03)
== END 2025-04-16 13:43 | disposition home or self-care (01) | DRG 863 ==
LOC: ER 15:45 → MEDI 21:59
PROVIDERS: Student in an Organized Health Care Education/Training Program; ADMIT Internal Medicine; ATTEND Internal Medicine
PROC: 0WPB30Z Removal of Drainage Device from Left Pleural Cavity, Percutaneous Approach (ICD-10-PCS; principal; 2025-04-13)
DX: T81.49XA Infection following a procedure, other surgical site, initial encounter (principal); C78.00 Secondary malignant neoplasm of unspecified lung; J91.0 Malignant pleural effusion; D72.829 Elevated white blood cell count, unspecified; Z96.89 Presence of other specified functional implants; L08.9 Local infection of the skin and subcutaneous tissue, unspecified

== ENCOUNTER 2025-05-25 15:15 | Outpatient (CLI) | payer OTHER ==
[~2025-05-25 15:15] MED LIST changes: +CARVEDILOL12.5 MG PO; +NORVASC2.5 M1 PO
== END 2025-05-25 15:21 | disposition home or self-care (01) ==
LOC: RAD 15:15
DX: J90 Pleural effusion, not elsewhere classified (principal)